=== PATIENT | female | born 1965 | race Asian ===

== ENCOUNTER 2024-03-22 11:05 | Emergency (ER) | payer SELFPAY ==
--- NOTE | 2024-03-22 11:33 | EDPHYS ---
Physician Documentation [facility] Name: Rakesh Cantu Age: 58 yrs Sex: Female : 1965 Arrival Date: 03/22/2024 Time: 11:05 Bed 16 Private MD: ED Physician Ross Perry HPI: 03/22 11:34 This 58 yrs old Female presents to ER via Ambulatory with complaints of Rash. ms3 11:34 58-year-old female with no past medical history presents to the emergency department ms3 for insect bites of her bilateral lower extremities and upper extremities. Patient states the bites are itching and have been so for the last 2 days. Patient denies pain. She denies any alleviating or inciting factors. Patient has applied topical steroids without relief.. Historical: - Allergies: 11:30 No Known Allergies; ld1 - Home Meds: 11:30 None [Active]; ld1 - PMHx: 11:30 None; ld1 - PSHx: 11:30 None; ld1 - Immunization history:: Adult Immunizations up to date. - Infectious Disease History:: Denies. - Social history:: Smoking status: Patient reports the use of cigarette tobacco products, smokes one pack cigarettes per day. ROS: 11:34 Constitutional: Negative for fever, and chills. Cardiovascular: Negative for chest ms3 pain, and palpitations. Respiratory: Negative for shortness of breath, cough, wheezing, and pleuritic chest pain, Abdomen/GI: Negative for abdominal pain, nausea, vomiting, diarrhea, and constipation, MS/Extremity: Negative for injury and deformity, 11:34 Skin: Positive for Insect bites, Exam: 11:34 Constitutional: This is a well developed, well nourished patient who is awake, alert, ms3 and in no acute distress. Head/Face: Normocephalic, atraumatic. Cardiovascular: Regular rate and rhythm with a normal S1 and S2. No gallops, murmurs, or rubs. Normal PMI, no JVD. No pulse deficits. Respiratory: Lungs have equal breath sounds bilaterally, clear to auscultation and percussion. No rales, rhonchi or wheezes noted. No increased work of breathing, no retractions or nasal flaring. Abdomen/GI: Soft, non-tender, with normal bowel sounds. No distension or tympany. No guarding or rebound. No evidence of tenderness throughout. 11:34 Skin: lesion(s), urticaria, Vital Signs: 11:28 BP 177 / 125; Pulse 74; Resp 18; Temp 97.5(TE); Pulse Ox 98% on R/A; Weight 75 kg; ld1 Height 5 ft. 7 in. ; Pain 0/10; 12:00 BP 156 / 100; Pulse 70; Resp 18; Temp 98.2; Pulse Ox 100% on R/A; kj2 11:28 Body Mass Index 25.90 (75.00 kg, 170.18 cm) ld1 11:28 Pain Scale: Adult ld1 MDM: 11:32 Patient medically screened. ms3 11:34 Differential diagnosis: Insect bite versus urticaria versus allergic reaction. Data ms3 reviewed: vital signs, nurses notes, and as a result, I will discharge patient. I considered the following discharge prescriptions or medication management in the emergency department Medications were administered in the Emergency Department. See MAR. Counseling: I had a detailed discussion with the patient and/or guardian regarding the historical points, exam findings, and any diagnostic results supporting the discharge/admit diagnosis, the need for outpatient follow up, to return to the emergency department if symptoms worsen or persist or if there are any questions or concerns that arise at home. Special discussion: I discussed with the patient/guardian in detail that at this point there is no indication for admission to the hospital. It is understood, however, that if the symptoms persist or worsen the patient needs to return immediately for re-evaluation. ED course: Patient given prednisone in the emergency department. Prescription for prednisone and hydroxyzine given. Patient to follow-up with primary care physician in 2 to 3 days. Patient understands and agrees with plan. All questions were answered. Return precautions discussed include worsening symptoms, or any other concerns.. Administered Medications: 11:59 Drug: predniSONE PO 60 mg PO once Route: PO; kj2 11:59 Follow up: Response: No adverse reaction; Medication administered at discharge. kj2 Disposition Summary: 03/22/24 11:32 Discharge Ordered Notes: Location: Home ms3 Condition: Stable ms3 Diagnosis - Insect bite (nonvenomous) of lower leg ms3 - Insect bite (nonvenomous) of unspecified upper arm, initial encounter ms3 Followup: ms3 - With: Don Borges DO - When: 2 - 3 days - Reason: Recheck today's complaints Discharge Instructions: - Discharge Summary Sheet ms3 Forms: - Medication Reconciliation Form ms3 - Antibiotic Education ms3 - Prescription Opioid Use ms3 - Patient Portal Instructions ms3 - Leadership Thank You Letter ms3 Prescriptions: - Hydralazine 25 mg Oral Tablet - take 1 tablet ORAL route 4 times per day with food; 30 tablet; Refills: 0, ms3 Product Selection Permitted - Prednisone 20 mg Oral Tablet - take 2 tablets ORAL route once daily for 5 days; 10 tablet; Refills: 0, Product ms3 Selection Permitted Signatures: Ross Perry DO DO ms3 Betzaida Perry RN RN ld1 Amber Barnard RN RN kj2
--- NOTE | 2024-03-22 11:33 | ER ---
Nurse's Notes [facility] Name: Rakesh Cantu Age: 58 yrs Sex: Female : 1965 Arrival Date: 03/22/2024 Time: 11:05 Bed 16 Private MD: Diagnosis: Insect bite (nonvenomous) of lower leg;Insect bite (nonvenomous) of unspecified upper arm, initial encounter Presentation: 03/22 11:28 Chief complaint: Patient states: Rash/possible insect bite - red bumps to sky arms, ld1 legs, neck X 3 days. Coronavirus screen: At this time, the client does not indicate any symptoms associated with coronavirus-19. Ebola Screen: No symptoms or risks identified at this time. Initial Sepsis Screen: Does the patient meet any 2 criteria? No. Patient's initial sepsis screen is negative. Does the patient have a suspected source of infection? No. Patient's initial sepsis screen is negative. Risk Assessment: Do you want to hurt yourself or someone else? Patient reports no desire to harm self or others. Onset of symptoms was March 22, 2024. 11:28 Method Of Arrival: Ambulatory ld1 11:28 Acuity: NITHYA 4 ld1 Triage Assessment: 11:31 General: Appears in no apparent distress. comfortable, Behavior is calm, cooperative, ld1 appropriate for age. Pain: Denies pain. EENT: No signs and/or symptoms were reported regarding the EENT system. Neuro: Level of Consciousness is awake, alert, obeys commands, Oriented to person, place, time, situation, Appropriate for age. Cardiovascular: Capillary refill < 3 seconds Patient's skin is warm and dry. Respiratory: Airway is patent Respiratory effort is even, unlabored. GI: Abdomen is flat, non-distended. : No signs and/or symptoms were reported regarding the genitourinary system. Derm: Rash noted that is itchy, red. Historical: - Allergies: 11:30 No Known Allergies; ld1 - Home Meds: 11:30 None [Active]; ld1 - PMHx: 11:30 None; ld1 - PSHx: 11:30 None; ld1 - Immunization history:: Adult Immunizations up to date. - Infectious Disease History:: Denies. - Social history:: Smoking status: Patient reports the use of cigarette tobacco products, smokes one pack cigarettes per day. Screenin:[facility] ED Fall Risk Assessment (Adult) History of falling in the last 3 months, kj2 including since admission No falls in past 3 months (0 pts) Confusion or Disorientation No (0 pts) Intoxicated or Sedated No (0 pts) Impaired Gait No (0 pts) Mobility Assist Device Used No (0 pt) Altered Elimination No (0 pt) Score/Fall Risk Level 0 - 2 = Low Risk Maintained a safe environment, Hourly rounding (assess needs \T\ fall precautionary measures) done. Abuse screen: Denies threats or abuse. Denies injuries from another. Nutritional screening: No deficits noted. Tuberculosis screening: No symptoms or risk factors identified. Assessment: 11:45 General: Appears in no apparent distress. Behavior is calm, cooperative. Pain: Denies kj2 pain. Neuro: Level of Consciousness is awake, alert, obeys commands, Oriented to person, place, time, situation. Cardiovascular: Patient's skin is warm and dry. Respiratory: Airway is patent Respiratory effort is even, unlabored. GI: No deficits noted. : No deficits noted. 12:01 Reassessment: MD aware of blood pressure, hydralazine prescription given at discharge. kj2 Vital Signs: 11:28 BP 177 / 125; Pulse 74; Resp 18; Temp 97.5(TE); Pulse Ox 98% on R/A; Weight 75 kg; ld1 Height 5 ft. 7 in. ; Pain 0/10; 12:00 BP 156 / 100; Pulse 70; Resp 18; Temp 98.2; Pulse Ox 100% on R/A; kj2 11:28 Body Mass Index 25.90 (75.00 kg, 170.18 cm) ld1 11:28 Pain Scale: Adult ld1 ED Course: 11:07 Patient arrived in ED. ra3 11:08 Ross Perry DO is Attending Physician. ms3 11:30 Triage completed. ld1 11:31 Don Borges DO is Referral Physician. ms3 11:31 Arm band placed on right wrist. ld1 11:45 Amber Barnard, RN is Primary Nurse. kj2 11:46 No provider procedures requiring assistance completed. kj2 11:47 Patient has correct armband on for positive identification. Bed in low position. Call kj2 light in reach. Provided Education on: call light, fall precautions. 12:01 Patient did not have IV access during this emergency room visit. kj2 Administered Medications: 11:59 Drug: predniSONE PO 60 mg PO once Route: PO; kj2 11:59 Follow up: Response: No adverse reaction; Medication administered at discharge. kj2 Medication: 11:46 VIS not applicable for this client. kj2 Outcome: 11:32 Discharge ordered by MD. ms3 11:47 Discharged to home ambulatory, kj2 11:47 Condition: stable 11:47 Discharge instructions given to patient, Instructed on discharge instructions, follow up and referral plans. Demonstrated understanding of instructions, follow-up care, 12:01 Patient left the ED. kj2 Signatures: Ross Perry, DO ms3 Betzaida Perry, RN RN ld1 Soraida Johnson ra3 Amber Barnard, RN RN kj2 Corrections: (The following items were deleted from the chart) 11:31 11:30 Bite description: bite ld1 ld1
[2024-03-22] MEDS ORDERED: predniSONE 20 MG TAB ONE (11:51)
[2024-03-22 12:08] VITALS: BP 156/100; TEMP 98.2; O2SAT 100
== END 2024-03-22 12:01 | disposition home or self-care (01) ==
LOC: ER 11:05
DX: S80.862A Insect bite (nonvenomous), left lower leg, initial encounter (principal); S80.861A Insect bite (nonvenomous), right lower leg, initial encounter; S40.862A Insect bite (nonvenomous) of left upper arm, initial encounter; S40.861A Insect bite (nonvenomous) of right upper arm, initial encounter
CPT/HCPCS: 99283; J7512